=== PATIENT | female | born 1970 | race African-American/Black ===

== ENCOUNTER 2018-01-28 16:20 | Emergency (ER) | payer MEDICARE ==
[2018-01-28] MEDS: IBUPROFEN 800 MG TABLET. PO (17:44)
== END 2018-01-28 18:15 | disposition home or self-care (01) ==
LOC: ER 16:20
DX: S39.012A Strain of muscle, fascia and tendon of lower back, initial encounter (principal); V79.59XA Passenger on bus injured in collision with other motor vehicles in traffic accident, initial encounter; Y93.89 Activity, other specified; Y99.8 Other external cause status; Y92.410 Unspecified street and highway as the place of occurrence of the external cause
CPT/HCPCS: 72131; 99284

== ENCOUNTER → 2020-02-23 | Outpatient (CLI) | payer MEDICARE ==
[2018-01-28 17:09] VITALS: BP 110/60
--- NOTE | 2020-02-23 14:04 | KCIC ---
EXAM: Brain MRI without contrast. HISTORY: Tension headache. TECHNIQUE: Multiplanar, multisequence magnetic resonance imaging of the brain was performed without contrast. COMPARISON: None. FINDINGS: There is no restricted diffusion to suggest acute or subacute infarction. There is no susceptibility effect to suggest hemorrhage. There is no mass effect or midline shift. There is no hydrocephalus. There are few tiny foci of signal change within the bilateral frontal white matter. The orbits are unremarkable. There is minimal left maxillary sinus mucosal thickening with a tiny mucous retention cyst. The mastoid air cells are clear. There are are normal flow voids within the cerebral vessels. There is no suspicious calvarial lesion. IMPRESSION: 1. No acute intracranial finding. 2. Tiny foci of signal change within the cerebral white matter. The differential includes changes due to chronic small vessel disease as well as chronic migraine headaches.. Despite the patient age, the lesion distribution and configuration does not favor demyelinating disease. Electronically signed by: Dalia Sewell MD (02/23/2020 2:01 PM) [facility] [place]
== END ==
LOC: KCIC MRI 12:29
PROVIDERS: ATTEND Psychiatry & Neurology Neurology with Special Qualifications in Child Neurology
DX: G44.221 Chronic tension-type headache, intractable (principal); G44.40 Drug-induced headache, not elsewhere classified, not intractable; I73.89 Other specified peripheral vascular diseases
CPT/HCPCS: 70551